=== PATIENT | female | born 1995 | race African-American/Black ===

== ENCOUNTER 2018-04-15 08:41 | Emergency (ER) | payer SELFPAY ==
--- NOTE | 2018-04-15 09:11 | ER Document Report ---
ED Medical Screen (RME) - General Chief Complaint: Vaginal Pain Stated Complaint: GROIN PAIN Time Seen by Provider: 04/15/18 09:06 TRAVEL OUTSIDE OF THE [place] IN LAST 30 DAYS: No - HPI Onset: Other - Vaginal bumps along her labia after a bikini wax several months ago which have worsened and acutely swollen over the last 3 days making it impossible for her to move normally. - Related Data Allergies/Adverse Reactions: No Known Allergies Allergy (Unverified 04/15/18 08:43) Physical Exam - Vital signs Vitals: Temp Pulse Resp BP Pulse Ox 98.7 F 73 14 118/65 97 04/15/18 08:45 04/15/18 08:45 04/15/18 08:45 04/15/18 08:45 04/15/18 08:45 Course - Re-evaluation Re-evalutation: Ms. Pina has bumps along her labia is with marked swelling concerning for potential developing infectious source will plan for her to undergo further investigation by secondary provider. I have seen and performed a rapid medical screening examination for this patient. They will require further investigation and disposition determination by a second provider. - Vital Signs Vital signs: Temp Pulse Resp BP Pulse Ox 98.7 F 73 14 118/65 97 04/15/18 08:45 04/15/18 08:45 04/15/18 08:45 04/15/18 08:45 04/15/18 08:45
[2018-04-15] MEDS ORDERED: LIDOCAINE 1%/EPINEPHRINE INJ 20 ML VIAL INJ ONE (10:30)
--- NOTE | 2018-04-15 10:35 | ER Document Report ---
ED General - General Chief Complaint: Vaginal Pain Stated Complaint: GROIN PAIN Time Seen by Provider: 04/15/18 09:06 Notes: Patient is a 22-year-old female that presents to the emergency department for chief complaint of right groin abscess. Patient states that she noticed larger swelling in her right groin, particular the last 3 days. She states that she had a wax, and then shaved about a week ago, and then noticed the swelling in her leg on the right groin. She has not noticed any drainage as she is significantly painful, currently rates the pain as a 9 out of 10, particular with walking, lying on that side. She is tried warm compresses, without much relief of her symptoms so she decided come to the emergency department. Denies any fevers, chills, night sweats, nausea, vomiting or abdominal pain. Past Medical History: Denies chronic medical conditions Past Surgical History: Denies surgical history Social History: Admits to occasional cigarette use, and alcohol use, denies illicit drug use Family History: Reviewed and noncontributory for presenting illness Allergies: Reviewed, see documented allergy list. REVIEW OF SYSTEMS: Other than noted above, the 12 point review of systems was reviewed with the patient and were negative, all pertinent findings are included in the HPI. PHYSICAL EXAMINATION: Vital signs reviewed, nursing noted reviewed. GENERAL: Well-appearing, well-nourished and in no acute distress. HEAD: Atraumatic, normocephalic. EYES: Eyes appear normal, extraocular movements intact, sclera anicteric, conjunctiva are normal. ENT: nares patent, oropharynx clear without exudates. Moist mucous membranes. NECK: Normal range of motion, supple without lymphadenopathy LUNGS: Breath sounds clear to auscultation bilaterally and equal. No wheezes rales or rhonchi. HEART: Regular rate and rhythm without murmurs ABDOMEN: Soft, nontender, normoactive bowel sounds. No rebound, guarding, or rigidity. No masses appreciated. External female genital exam: Patient noted to have an area of fluctuance and induration, just lateral to the right labia majora, tender to palpate, no other external lesions noted. EXTREMITIES: Nontender, good range of motion, no pitting or edema. NEUROLOGICAL: No focal neurological deficits. Moves all extremities spontaneously Motor and sensory grossly intact on exam. PSYCH: Normal mood, normal affect. SKIN: Warm, Dry, normal turgor, no rashes or lesions noted on exposed skin TRAVEL OUTSIDE OF THE [place] IN LAST 30 DAYS: No - Related Data Allergies/Adverse Reactions: No Known Allergies Allergy (Verified 04/15/18 09:12) Past Medical History - Social History Smoking Status: Current Some Day Smoker Chew tobacco use (# tins/day): No Frequency of alcohol use: Occasional Drug Abuse: None Family History: Reviewed & Not Pertinent Patient has suicidal ideation: No Patient has homicidal ideation: No Renal/ Medical History: Denies: Hx Peritoneal Dialysis Physical Exam - Vital signs Vitals: Temp Pulse Resp BP Pulse Ox 98.7 F 73 14 118/65 97 04/15/18 08:45 04/15/18 08:45 04/15/18 08:45 04/15/18 08:45 04/15/18 08:45 Course - Re-evaluation Re-evalutation: Patient seen and examined vital signs reviewed. Patient was treated with I and D as noted. Patient tolerated well. The patient was re-evaluated and was improved. Evaluation was most consistent with right groin abscess, patient discharged with prescriptions for keflex and bactrim, and advised to follow-up with her OB/ [facility] for wound check. Results were discussed with the patient at this point, after careful consideration I feel that that patient can be discharged from the emergency department, the patient was educated treatments and reasons to return to the emergency department based on their presumed diagnosis as noted above, they were advised to followup with a primary care physician in 2-3 days. Patient was agreeable to plan of care. *Note is created using voice recognition software and may contain spelling, syntax or grammatical errors. - Vital Signs Vital signs: Temp Pulse Resp BP Pulse Ox 98.2 F 84 16 118/74 100 04/15/18 12:25 04/15/18 12:25 04/15/18 12:25 04/15/18 12:25 04/15/18 12:25 Procedures - Incision and Drainage Right Groin Type: Complex Anesthetic type: 1% Lidocaine w/epi mL's of anesthetic: 3 Blade size: 11 I&D procedure: Chlorprep applied, Sterile dressing applied, Other - irrigated with saline Incision Method: Incision made by scalpel Amount/type of drainage: 10 Notes: After explaining the risks and benefits of the procedure the area was prepped and anesthetized, a 1cm incision was made and the abscess drained bloody- purulent drainage. The abscess was probed and loculations were broken up and more drainage was produced. The abscess was then irrigated. Patient tolerated procedure well. Discharge - Discharge Clinical Impression: Abscess Condition: Stable Disposition: HOME, SELF-CARE Instructions: Abscess ([facility]), Cephalexin ([facility]), Post Incision and Drainage, Trimethoprim-Sulfa ([facility]) Additional Instructions: Please keep the area clean and dry, you can use Dial soap, antimicrobial soap, and bathe normally, there will be some bloody and yellow drainage at times, please follow-up with the [facility], to have this reinspected, please take the antibiotics for the complete course even if you are feeling better sooner. Prescriptions: Cephalexin Monohydrate [Keflex 500 mg Capsule] 500 mg PO Q8H 7 Days #21 capsule Sulfamethoxazole/Trimethoprim [Bactrim Ds Tablet] 1 each PO BID 7 Days #14 tablet Referrals: [facility] [Provider Group] - Follow up as needed
[2018-04-15 12:26] VITALS: BP 118/74
== END 2018-04-15 12:27 | disposition home or self-care (01) ==
LOC: ER 08:41
DX: L02.214 Cutaneous abscess of groin (principal); R10.2 Pelvic and perineal pain; F17.200 Nicotine dependence, unspecified, uncomplicated
CPT/HCPCS: 99283